=== PATIENT | male | born 1935 ===

== ENCOUNTER 2017-09-08 11:22 | Inpatient (IN) | payer OTHER, MEDICARE ==
--- NOTE | 2017-09-08 12:54 | CT ---
PROCEDURE: CT HEAD WITHOUT CONTRAST. HISTORY: r/o ICH COMPARISON: None available. TECHNIQUE: Axial computed tomography images were obtained through the head/brain without intravenous contrast. Radiation dose: Total exam DLP = 850.65 mGy-cm. This CT exam was performed using one or more of the following dose reduction techniques: Automated exposure control, adjustment of the mA and/or kV according to patient size, and/or use of iterative reconstruction technique. FINDINGS: HEMORRHAGE: No intracranial hemorrhage. BRAIN: Good corticomedullary differentiation is seen. Diffuse expansion of the ventriculosulcal and cisternal spaces is appreciated with white matter lucency compatible with diffuse cerebral atrophy and chronic microangiopathy. No suspicious extra-axial fluid collection is identified and the midline brain anatomy appears grossly nonfocal as imaged. There is no mass effect throughout. VENTRICLES: Unremarkable. No hydrocephalus. CALVARIUM: Unremarkable. PARANASAL SINUSES: Unremarkable as visualized. No significant inflammatory changes. MASTOID AIR CELLS: Unremarkable as visualized. No inflammatory changes. OTHER FINDINGS: None. IMPRESSION: Age related neuro degenerative changes are identified without acute intracranial findings as discussed above. Exam otherwise unremarkable. Follow up CT or MRI are available if clinically warranted.
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
[2017-09-08 14:19] LABS: BASO % 0.4 % (0.0-2.0); EOS # 0.4 K/uL (0.0-0.7); EOS % 5.8 % (0.0-4.0); HEMOGLOBIN 13.8 g/dL (12.0-18.0); LYMPH # 1.1 K/uL (1.0-4.3); LYMPH % 14.6 % (20.0-40.0); MEAN CELL VOLUME 98.5 fl (80.0-94.0); MEAN CORPUSCULAR HEMOGLOBIN 33.8 pg (27.0-31.0); MEAN CORPUSCULAR HGB CONC 34.4 g/dL (33.0-37.0); MEAN PLATELET VOLUME 8.2 fl (7.2-11.7); MONO # 0.4 K/uL (0.0-0.8); MONO % 4.9 % (0.0-10.0); NEUT # 5.6 K/uL (1.8-7.0); NEUT % 74.3 % (50.0-75.0); RBC 4.07 Mil/uL (4.40-5.90); RED CELL DISTRIBUTION WIDTH 14.6 % (11.5-14.5); WHITE BLOOD COUNT 7.5 K/uL (4.8-10.8)
[2017-09-08 14:31] LABS: ALB/GLOB RATIO 1.2 (1.0-2.1); ALBUMIN 3.9 g/dL (3.5-5.0); ALT/SGPT 44 U/L (21-72); AST/SGOT 40 U/L (17-59); BLOOD UREA NITROGEN 10 mg/dl (9-20); CALCIUM 9.2 mg/dL (8.4-10.2); GFR AFRICAN-AMERICAN > 60; GFR NON-AFRICAN AMERICAN 58
[2017-09-08 14:32] LABS: PROTHROMBIN TIME 11.4 Seconds (9.8-13.1)
[2017-09-08 14:33] LABS: PARTIAL THROMBOPLASTIN TIME 29.8 Seconds (25.6-37.1)
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
[2017-09-08 15:56] LABS: ALB/GLOB RATIO 1.1 (1.0-2.1); ALBUMIN 3.7 g/dL (3.5-5.0); ALT/SGPT 34 U/L (21-72); AST/SGOT 34 U/L (17-59); BLOOD UREA NITROGEN 11 mg/dl (9-20); CALCIUM 9.1 mg/dL (8.4-10.2); GFR AFRICAN-AMERICAN > 60; GFR NON-AFRICAN AMERICAN > 60
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
--- NOTE | 2017-09-08 16:47 | RAD ---
PROCEDURE: Left Knee Radiographs. HISTORY: Pain. COMPARISON: None. FINDINGS: BONES: Normal. No fracture. JOINTS: Normal. No osteoarthritis. JOINT EFFUSION: None. OTHER FINDINGS: None. IMPRESSION: No acute findings related to/accounting for the clinical presentation.
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
--- NOTE | 2017-09-08 17:03 | CT ---
PROCEDURE: HISTORY: L hip fracture COMPARISON: Left femur and left hip pelvic x-rays 09/08/2017 TECHNIQUE: Axial imaging through the left hip with sagittal coronal reformations were obtained. 3D surface algorithm also applied.This CT exam was performed using one or more of the following dose reduction techniques: Automated exposure control, adjustment of the mA and/or kV according to patient size, and/or use of iterative reconstruction technique. FINDINGS: Background left hip osteoarthrosis noted A left oblique complete fracture starting left superolateral and exiting left inferomedial to left femoral neck noted the inferomedial exit is just above the trochanteric line. No dislocation noted Atherosclerotic vascular calcifications present. . IMPRESSION: Left femoral neck fracture without significant displaced fracture fragments. No dislocation. Background left hip mild osteoarthrosis Atherosclerotic vascular calcifications present. .
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
[2017-09-08] MEDS: Sodium Chloride 0.9% 1,000 ML IV SCH (19:18)
[2017-09-08 21:18] LABS: URINE BACTERIA RARE (<OCC); URINE BILIRUBIN NEGATIVE (NEGATIVE); URINE BLOOD NEGATIVE (NEGATIVE); URINE CLARITY CLEAR (Clear); URINE COLOR YELLOW (YELLOW); URINE GLUCOSE (UA) 50 mg/dL (Normal); URINE LEUKOCYTE ESTERASE NEG Leu/uL (Negative); URINE PROTEIN NEGATIVE (NEGATIVE); URINE UROBILINOGEN 0.2-1.0 mg/dL (0.2-1.0)
[2017-09-08] MEDS: Insulin Lispro (humaLOG) 100 Units/ml Inj SC SCH (22:00)
[2017-09-09] MEDS: Sodium Chloride 0.9% 1,000 ML IV SCH ×4 (03:50→23:45)
[2017-09-09 06:30] LABS: BASO % 0.6 % (0.0-2.0); EOS # 0.8 K/uL (0.0-0.7); EOS % 14.6 % (0.0-4.0); HEMOGLOBIN 12.4 g/dL (12.0-18.0); LYMPH # 1.2 K/uL (1.0-4.3); LYMPH % 21.2 % (20.0-40.0); MEAN CELL VOLUME 99.7 fl (80.0-94.0); MEAN CORPUSCULAR HEMOGLOBIN 33.6 pg (27.0-31.0); MEAN CORPUSCULAR HGB CONC 33.7 g/dL (33.0-37.0); MEAN PLATELET VOLUME 8.5 fl (7.2-11.7); MONO # 0.4 K/uL (0.0-0.8); MONO % 7.2 % (0.0-10.0); NEUT # 3.1 K/uL (1.8-7.0); NEUT % 56.4 % (50.0-75.0); NRBC % 0.1 % (0.0-0.0); RBC 3.69 Mil/uL (4.40-5.90); RED CELL DISTRIBUTION WIDTH 14.7 % (11.5-14.5); WHITE BLOOD COUNT 5.5 K/uL (4.8-10.8)
[2017-09-09 06:50] LABS: LDL CHOLESTEROL 41 mg/dL (0-129)
[2017-09-09 06:59] LABS: BLOOD UREA NITROGEN 15 mg/dl (9-20); CALCIUM 8.6 mg/dL (8.4-10.2); GFR AFRICAN-AMERICAN > 60; GFR NON-AFRICAN AMERICAN 58; HDL CHOLESTEROL 42 MG/DL (30-70)
[2017-09-09] MEDS: Insulin Lispro (humaLOG) 100 Units/ml Inj SC SCH ×4 (07:52→21:30)
[2017-09-09] MEDS: Pantoprazole 40 mg EC Tab PO SCH (08:02)
[2017-09-09] MEDS: Enoxaparin 40 mg Syringe SC SCH (08:02)
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
--- NOTE | 2017-09-09 10:33 | CARD ---
APPROVED REPORT EKG Measurement Heart [id number] [place] 134P [id number] <Conclusion> Probable coronary sinus rhythm Low voltage QRS Borderline ECG
--- NOTE | 2017-09-09 12:01 | CP.PCM.PN ---
Subjective - Date & Time of Evaluation Date of Evaluation: 09/09/17 Time of Evaluation: 11:59 - Subjective Subjective: Patient complaining of pain in hip. Denies CP/SOB/dizziness. Objective - Vital Signs/Intake and Output Vital Signs (last 24 hours): Temp Pulse Resp BP Pulse Ox 97.3 F L 66 20 137/82 99 09/09/17 08:21 09/09/17 08:21 09/09/17 08:21 09/09/17 08:21 09/09/17 08:21 - Medications Medications: Current Medications Acetaminophen (Tylenol 325mg Tab) 650 mg PO Q6 PRN PRN Reason: Pain, Mild (1-3) Acetaminophen (Tylenol 325mg Tab) 650 mg PO Q6 PRN PRN Reason: Fever >100.4 F Docusate Sodium (Colace) 100 mg PO BID [facility] Last Admin: 09/09/17 08:02 Dose: 100 mg Enoxaparin Sodium (Lovenox) 40 mg SC DAILY [facility] PRN Reason: Protocol Last Admin: 09/09/17 08:02 Dose: 40 mg Sodium Chloride (Sodium Chloride 0.9%) 1,000 mls @ 100 mls/hr IV .Q10H [facility] Last Admin: 09/09/17 06:21 Dose: 100 mls/hr Insulin Human Lispro (Humalog) 0 units SC ACHS [facility] PRN Reason: Protocol Last Admin: 09/09/17 07:52 Dose: Not Given Ketorolac Tromethamine (Toradol) 30 mg IVP Q6 PRN PRN Reason: Pain, moderate (4-7) Last Admin: 09/09/17 02:04 Dose: 30 mg Morphine Sulfate (Morphine) 2 mg IVP Q6 PRN PRN Reason: Pain, severe (8-10) Last Admin: 09/09/17 02:39 Dose: 2 mg Ondansetron HCl (Zofran Inj) 4 mg IVP Q6 PRN PRN Reason: Nausea/Vomiting Pantoprazole Sodium (Protonix Ec Tab) 40 mg PO DAILY [facility] Last Admin: 09/09/17 08:02 Dose: 40 mg - Labs Labs: 09/09/17 06:00 09/09/17 06:00 PT 11.4 Seconds (9.8-13.1) 09/08/17 14:10 INR 1.0 (0.9-1.2) 09/08/17 14:10 APTT 29.8 Seconds (25.6-37.1) 09/08/17 14:10 - Extremities Exam Additional comments: Patient refusing SCD on left, adjusted and reinforced. +ROM ankle/toes, sensation intact +DP/PT pulses Assessment and Plan (1) Fracture of femoral neck, left Assessment & Plan: For OR 09/12 pending cardiac clearance hold lovenox after tuesday dose, SCDs T&C labs reviewed d/w Dr. Walekr, agrees with above Status: Acute
--- NOTE | 2017-09-09 20:49 | CARD ---
APPROVED REPORT EXAM: Two-dimensional and M-mode echocardiogram with Doppler and color Doppler. Other Information Quality : FairRhythm : NSR Technically limited study due to Poor Window,broken HIP INDICATION Pre-Op 2D DIMENSIONS IVSd0.88 (0.7-1.1cm)LVDd5.20 (3.9-5.9cm) PWd0.92 (0.7-1.1cm)IVSs1.17 (0.8-1.2cm) LVDs3.01 (2.5-4.0cm)FS (%) 42.1 % PWs0.85 (0.8-1.2cm) Mitral Valve MV E Pqmbwils38.0cm/sMV DECEL [id number] A Kjnejjoj07.4cm/s MV [id number]/A ratio0.7MVA (PHT)2.47cm2 TDI E/Lateral E'0.0E/Medial E'0.0 LEFT VENTRICLE The left ventricle is normal in size. There is normal left ventricular wall thickness. The left ventricular function is normal. The left ventricular ejection fraction is - 70%. There is normal LV segmental wall motion. Transmitral Doppler flow pattern is Grade I-abnormal relaxation pattern. No left ventricle thrombus noted on this study. There is no ventricular septal defect visualized. There is no left ventricular aneurysm. There is no mass noted in the left ventricle. RIGHT VENTRICLE The right ventricle is normal size. There is normal right ventricular wall thickness. The right ventricular systolic function is normal. ATRIA The left atrium size is normal. There is no thrombus suspected in the left atrium. The right atrium size is normal. The interatrial septum is intact with no evidence for an atrial septal defect. AORTIC VALVE The aortic valve is normal in structure. No aortic regurgitation is present. There is no aortic valvular stenosis. MITRAL VALVE The mitral valve leaflets are mildly thickened. There is no evidence of mitral valve prolapse. There is no mitral valve stenosis. There is no mitral valve regurgitation noted. TRICUSPID VALVE The tricuspid valve is normal in structure. There is no tricuspid valve regurgitation noted. There is no tricuspid valve prolapse or vegetation. There is no tricuspid valve stenosis. PULMONIC VALVE The pulmonic valve is not well visualized. Doppler studies of the PV were not performed. GREAT VESSELS The aortic root is normal in size. The IVC is normal in size and collapses >50% with inspiration. The IVC is normal in size and collapses >50% with inspiration. PERICARDIAL EFFUSION The pericardium appears normal. There is no pleural effusion. <Conclusion> The study is of suboptimal quality. The left ventricle is normal in size and wall thickness. The left ventricular function is normal. The left ventricular ejection fraction is - 70%. The left atrium, right ventricle and right atrium are normal in size The mitral valve is mildly thickened but not stenotic. The aortic and tricuspid valves are normal.
[2017-09-10 06:41] LABS: HEMOGLOBIN 12.6 g/dL (12.0-18.0); MEAN CELL VOLUME 98.8 fl (80.0-94.0); MEAN CORPUSCULAR HEMOGLOBIN 33.6 pg (27.0-31.0); RBC 3.74 Mil/uL (4.40-5.90); RED CELL DISTRIBUTION WIDTH 14.6 % (11.5-14.5); WHITE BLOOD COUNT 5.8 K/uL (4.8-10.8)
[2017-09-10 07:00] LABS: BLOOD UREA NITROGEN 12 mg/dl (9-20); CALCIUM 8.7 mg/dL (8.4-10.2); GFR AFRICAN-AMERICAN > 60; GFR NON-AFRICAN AMERICAN > 60; HDL CHOLESTEROL 45 MG/DL (30-70)
[2017-09-10 07:11] LABS: LDL CHOLESTEROL 45 mg/dL (0-129)
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
[2017-09-10] MEDS: Insulin Lispro (humaLOG) 100 Units/ml Inj SC SCH ×4 (08:02→22:00)
[2017-09-10] MEDS: Enoxaparin 40 mg Syringe SC SCH (08:26)
[2017-09-10] MEDS: Pantoprazole 40 mg EC Tab PO SCH (08:27)
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
[2017-09-10] MEDS: Sodium Chloride 0.9% 1,000 ML IV SCH (09:14)
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
[2017-09-11] MEDS ORDERED: Ergocalciferol 50,000 Intl Units Cap PO SCH (07:45)
[2017-09-11] MEDS: Insulin Lispro (humaLOG) 100 Units/ml Inj SC SCH ×4 (07:52→21:25)
[2017-09-11] MEDS: Pantoprazole 40 mg EC Tab PO SCH (08:51)
[2017-09-12 06:20] LABS: MEAN CELL VOLUME 99.2 fl (80.0-94.0); MEAN CORPUSCULAR HEMOGLOBIN 33.9 pg (27.0-31.0); MEAN CORPUSCULAR HGB CONC 34.1 g/dL (33.0-37.0); RBC 3.83 Mil/uL (4.40-5.90); RED CELL DISTRIBUTION WIDTH 14.1 % (11.5-14.5); WHITE BLOOD COUNT 4.6 K/uL (4.8-10.8)
[2017-09-12 06:30] LABS: BLOOD UREA NITROGEN 14 mg/dl (9-20); CALCIUM 8.9 mg/dL (8.4-10.2); GFR AFRICAN-AMERICAN > 60; GFR NON-AFRICAN AMERICAN > 60; INR 1.1 (0.9-1.2); PROTHROMBIN TIME 11.7 Seconds (9.8-13.1)
[2017-09-12] MEDS: Insulin Lispro (humaLOG) 100 Units/ml Inj SC SCH ×4 (07:00→21:38)
[2017-09-12] MEDS ORDERED: Absorbable Gelatin Sponge Size 100 ONE (07:17)
[2017-09-12] MEDS ORDERED: Thrombin Topical 5,000 Int Units Spray Kit ONE (07:17)
[2017-09-12] MEDS ORDERED: Bupivacaine 0.5% Inj(30mL) ONE (07:17)
[2017-09-12] MEDS ORDERED: Morphine 1 mg/ml preservative-free Inj(Duramorph) ONE (07:41)
[2017-09-12] MEDS ORDERED: ePHEDrine 50 mg/ml Inj ONE (07:41)
[2017-09-12] MEDS ORDERED: Etomidate 20 mg/10ml Inj IV ONE (07:42)
[2017-09-12] MEDS ORDERED: Phenylephrine 10 mg/ml Inj ONE (07:43)
[2017-09-12] MEDS ORDERED: Propofol 10 mg/ml Inj (20 ML) ONE (07:43)
[2017-09-12] MEDS ORDERED: Lactated Ringer's 1,000 ML IV ONE ×2 (07:45→09:30)
[2017-09-12] MEDS ORDERED: Succinylcholine 200 mg/10 ml Inj IV ONE (07:58)
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
[2017-09-12] MEDS ORDERED: Rocuronium 10 mg/ml (5 ml) ONE (08:41)
[2017-09-12] MEDS ORDERED: Vecuronium 10 mg Inj ONE (08:42)
[2017-09-12] MEDS ORDERED: Tranexamic Acid 1,000 MG in Sodium Chloride 0.9% 100 ML IVPB ONE (09:03)
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
[2017-09-12] MEDS: Pantoprazole 40 mg EC Tab PO SCH (09:35)
[2017-09-12] MEDS ORDERED: Sodium Chloride 0.9% 3,000 ML IV ONE (10:07)
[2017-09-12] MEDS ORDERED: Bacitracin Ointment 30 GM TUBE ONE (11:23)
[2017-09-12] MEDS ORDERED: Oxycodone/Acetaminophen 5/325 mg Tab PO PRN (11:50)
--- NOTE | 2017-09-12 14:00 | RAD ---
PROCEDURE: Left Hip X-ray Radiographs. HISTORY: s/p THR pt in PACU COMPARISON: 09/08/2017 FINDINGS: BONES: The pelvic ring is intact. There is no acute fracture or bone destruction. Status post total left hip arthroplasty. JOINTS: The right hip joint space is preserved. The sacroiliac joints are normal. SOFT TISSUES: There is left periarticular soft tissue swelling and extensive soft tissue emphysema in keeping with recent surgery. Lateral skin tanya are identified OTHER FINDINGS: None. IMPRESSION: Status post total left hip arthroplasty with expected postsurgical changes in the periarticular soft tissues. No acute complications.
--- NOTE | 2017-09-12 15:19 | PCM.SURG1 ---
Surgeon's Initial Post Op Note - Surgeon's Notes Surgeon: Ron Walker MD Abrasive Grader: Nilton Bond PA-C, Rachel CANTU Type of Anesthesia: General Endo Anesthesia Administered By: Aaron TRAVIS Pre-Operative Diagnosis: Left displaced femoral neck fracture Operative Findings: 1) Left hip displaced femoral neck fracture. 2) Pre- existing left hip osteoarthritis Post-Operative Diagnosis: as above Operation Performed: 1) Left total hip arthroplasty, anterior approach. 2) Left femoral neck osteotomy. 3) Iliopsoas release. 4) Allograft bone grafting Specimen/Specimens Removed: Left femoral head Estimated Blood Loss: EBL {In ML}: 80 Blood Products Given: N/A Drains Used: No Drains Date of Surgery/Procedure: 09/12/17 Time of Surgery/Procedure: 07:45 (incision time: 09:10)
--- NOTE | 2017-09-12 15:50 | RAD ---
PROCEDURE: Fluoroscopy over 1 hour HISTORY: LEFT HIP COMPARISON: None TECHNIQUE: Standard protocol for this study/examination. FINDINGS: Total fluoroscopic time (continuous mode) utilized during the procedure 17.0 (seconds). IMPRESSION: Submitted images from the current procedure: 5.0
[2017-09-12] MEDS: ceFAZolin 2 GM in Sodium Chloride 0.9% 100 ML IVPB SCH ×2 (16:38→16:42)
[2017-09-12] MEDS: Oxycodone/Acetaminophen 5/325 mg Tab PO PRN (23:27)
[2017-09-13] MEDS ORDERED: ceFAZolin 2 GM in Sodium Chloride 0.9% 100 ML IVPB SCH (01:00)
[2017-09-13] MEDS: Oxycodone/Acetaminophen 5/325 mg Tab PO PRN ×2 (03:39→09:08)
[2017-09-13 03:50] VITALS: RESP 20
[2017-09-13] MEDS: Lactated Ringer's 1,000 ML IV SCH ×2 (04:01→04:35)
[2017-09-13] MEDS: Sodium Chloride 0.9% 1,000 ML IV SCH ×2 (04:36→09:22)
[2017-09-13 06:04] LABS: HEMOGLOBIN 10.2 g/dL (12.0-18.0); MEAN CORPUSCULAR HGB CONC 34.1 g/dL (33.0-37.0); RBC 2.99 Mil/uL (4.40-5.90); RED CELL DISTRIBUTION WIDTH 14.2 % (11.5-14.5); WHITE BLOOD COUNT 5.8 K/uL (4.8-10.8)
[2017-09-13 06:26] LABS: BLOOD UREA NITROGEN 19 mg/dl (9-20); GFR AFRICAN-AMERICAN > 60; GFR NON-AFRICAN AMERICAN 58
--- NOTE | 2017-09-13 08:35 | CP.PCM.PN ---
Subjective - Date & Time of Evaluation Date of Evaluation: 09/13/17 Time of Evaluation: 07:30 - Subjective Subjective: Patient seen and examined at bedside comfortable. Pain well controlled. No acute events overnight. Objective - Vital Signs/Intake and Output Vital Signs (last 24 hours): Temp Pulse Resp BP Pulse Ox 97.4 F L 92 H 20 114/67 96 09/13/17 07:39 09/13/17 07:39 09/13/17 07:39 09/13/17 07:39 09/13/17 07:39 - Medications Medications: Current Medications Acetaminophen (Tylenol 325mg Tab) 650 mg PO Q6 PRN PRN Reason: Pain, Mild (1-3) Acetaminophen (Tylenol 325mg Tab) 650 mg PO Q6 PRN PRN Reason: Fever >100.4 F Docusate Sodium (Colace) 100 mg PO BID [facility] Last Admin: 09/12/17 09:41 Dose: Not Given Enoxaparin Sodium (Lovenox) 40 mg SC Q24H [facility] PRN Reason: Protocol Ergocalciferol (Drisdol 50,000 Intl Units Cap) 1 cap PO Q7D [facility] Last Admin: 09/11/17 13:00 Dose: 1 cap Ferrous Sulfate (Feosol) 325 mg PO BID [facility] Sodium Chloride (Sodium Chloride 0.9%) 1,000 mls @ 100 mls/hr IV .Q10H [facility] Last Admin: 09/13/17 04:36 Dose: Not Given Insulin Human Lispro (Humalog) 0 units SC ACHS [facility] PRN Reason: Protocol Last Admin: 09/12/17 21:38 Dose: Not Given Morphine Sulfate (Morphine) 2 mg IVP Q4 PRN PRN Reason: Pain, severe (8-10) Last Admin: 09/13/17 05:00 Dose: 2 mg Ondansetron HCl (Zofran Inj) 4 mg IVP Q6 PRN PRN Reason: Nausea/Vomiting Oxycodone/Acetaminophen (Percocet 5/325 Mg Tab) 1 tab PO Q4 PRN PRN Reason: Pain, moderate (4-7) Stop: 09/15/17 11:52 Last Admin: 09/13/17 03:39 Dose: 1 tab Pantoprazole Sodium (Protonix Ec Tab) 40 mg PO DAILY [facility] Last Admin: 09/11/17 08:51 Dose: 40 mg - Labs Labs: 09/13/17 05:50 09/13/17 05:50 PT 11.7 Seconds (9.8-13.1) 09/12/17 06:00 INR 1.1 (0.9-1.2) 09/12/17 06:00 APTT 29.8 Seconds (25.6-37.1) 09/08/17 14:10 - Extremities Exam Additional comments: R hip: Dressings CDI, mild tenderness 2nd to surgery, mild swelling sensation intact SP/DP/TN motor intact EHL/FHL/TA/G pedal pulses intact comp soft NT Assessment and Plan (1) Femoral neck fracture Assessment & Plan: POD #1 R CAMILLA anterior approach doing well -pain control -PT/OT WBAT -DVT ppx -complete abx course -d/c planning -above d/w Dr. Walker in agreement Status: Acute
[2017-09-13] MEDS: Insulin Lispro (humaLOG) 100 Units/ml Inj SC SCH ×4 (09:04→22:13)
[2017-09-13] MEDS: Pantoprazole 40 mg EC Tab PO SCH (09:05)
--- NOTE | 2017-09-13 09:06 | CP.PCM.PN ---
Subjective - Date & Time of Evaluation Date of Evaluation: 09/13/17 Time of Evaluation: 09:00 - Subjective Subjective: NO CHEST PAIN OR SOB Objective - Vital Signs/Intake and Output Vital Signs (last 24 hours): Temp Pulse Resp BP Pulse Ox 97.4 F L 92 H 20 114/67 96 09/13/17 07:39 09/13/17 07:39 09/13/17 07:39 09/13/17 07:39 09/13/17 07:39 - Medications Medications: Current Medications Acetaminophen (Tylenol 325mg Tab) 650 mg PO Q6 PRN PRN Reason: Pain, Mild (1-3) Acetaminophen (Tylenol 325mg Tab) 650 mg PO Q6 PRN PRN Reason: Fever >100.4 F Docusate Sodium (Colace) 100 mg PO BID [facility] Last Admin: 09/12/17 09:41 Dose: Not Given Enoxaparin Sodium (Lovenox) 40 mg SC Q24H [facility] PRN Reason: Protocol Ergocalciferol (Drisdol 50,000 Intl Units Cap) 1 cap PO Q7D [facility] Last Admin: 09/11/17 13:00 Dose: 1 cap Ferrous Sulfate (Feosol) 325 mg PO BID [facility] Sodium Chloride (Sodium Chloride 0.9%) 1,000 mls @ 100 mls/hr IV .Q10H [facility] Last Admin: 09/13/17 04:36 Dose: Not Given Insulin Human Lispro (Humalog) 0 units SC ACHS [facility] PRN Reason: Protocol Last Admin: 09/12/17 21:38 Dose: Not Given Morphine Sulfate (Morphine) 2 mg IVP Q4 PRN PRN Reason: Pain, severe (8-10) Last Admin: 09/13/17 05:00 Dose: 2 mg Ondansetron HCl (Zofran Inj) 4 mg IVP Q6 PRN PRN Reason: Nausea/Vomiting Oxycodone/Acetaminophen (Percocet 5/325 Mg Tab) 1 tab PO Q4 PRN PRN Reason: Pain, moderate (4-7) Stop: 09/15/17 11:52 Last Admin: 09/13/17 03:39 Dose: 1 tab Pantoprazole Sodium (Protonix Ec Tab) 40 mg PO DAILY [facility] Last Admin: 09/11/17 08:51 Dose: 40 mg - Labs Labs: 09/13/17 05:50 09/13/17 05:50 PT 11.7 Seconds (9.8-13.1) 09/12/17 06:00 INR 1.1 (0.9-1.2) 09/12/17 06:00 APTT 29.8 Seconds (25.6-37.1) 09/08/17 14:10 - Respiratory Exam Respiratory Exam: Clear to Ausculation Bilateral - Cardiovascular Exam Cardiovascular Exam: REGULAR RHYTHM, +S1, +S2 - Additional Findings Additional findings: OR NOTES REVIEWED WITH LEFT HIP ARTHROPLASTY AND LEFT FEMORAL NECK OSTEOTOMY Assessment and Plan - Assessment and Plan (Free Text) Assessment: SURGICAL REPAIR OF LEFT HIP FRACTURE Plan: CONTINUE LOVENOX AND PAIN MEDICATIONS FOR REHAB
[2017-09-13] MEDS: Enoxaparin 40 mg Syringe SC SCH ×2 (09:20→09:22)
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
[2017-09-13] MEDS ORDERED: Sodium Chloride 0.9% 500 ML IV ONE (16:19)
[2017-09-14] MEDS: Sodium Chloride 0.9% 1,000 ML IV SCH ×3 (01:34→16:21)
[2017-09-14 06:28] LABS: HEMOGLOBIN 8.9 g/dL (12.0-18.0); MEAN CELL VOLUME 98.7 fl (80.0-94.0); MEAN CORPUSCULAR HEMOGLOBIN 34.3 pg (27.0-31.0); MEAN CORPUSCULAR HGB CONC 34.7 g/dL (33.0-37.0); RBC 2.61 Mil/uL (4.40-5.90); RED CELL DISTRIBUTION WIDTH 13.8 % (11.5-14.5); WHITE BLOOD COUNT 5.5 K/uL (4.8-10.8)
[2017-09-14 06:47] LABS: BLOOD UREA NITROGEN 19 mg/dl (9-20); CALCIUM 7.7 mg/dL (8.4-10.2); GFR AFRICAN-AMERICAN > 60; GFR NON-AFRICAN AMERICAN > 60
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
--- NOTE | 2017-09-14 08:07 | CP.PCM.PN ---
Subjective - Date & Time of Evaluation Date of Evaluation: 09/14/17 Time of Evaluation: 08:00 - Subjective Subjective: Patient states pain in hip is controlled, and he is feeling better. Denies CP/ SOB/dizziness. Objective - Vital Signs/Intake and Output Vital Signs (last 24 hours): Temp Pulse Resp BP Pulse Ox 97.5 F L 81 20 126/67 98 09/14/17 08:05 09/14/17 08:05 09/14/17 08:05 09/14/17 08:05 09/14/17 08:05 - Medications Medications: Current Medications Acetaminophen (Tylenol 325mg Tab) 650 mg PO Q6 PRN PRN Reason: Pain, Mild (1-3) Last Admin: 09/14/17 02:46 Dose: 650 mg Acetaminophen (Tylenol 325mg Tab) 650 mg PO Q6 PRN PRN Reason: Fever >100.4 F Docusate Sodium (Colace) 100 mg PO BID [facility] Last Admin: 09/13/17 16:44 Dose: 100 mg Enoxaparin Sodium (Lovenox) 40 mg SC Q24H [facility] PRN Reason: Protocol Last Admin: 09/13/17 09:22 Dose: 40 mg Ergocalciferol (Drisdol 50,000 Intl Units Cap) 1 cap PO Q7D [facility] Last Admin: 09/11/17 13:00 Dose: 1 cap Ferrous Sulfate (Feosol) 325 mg PO BID [facility] Last Admin: 09/13/17 16:44 Dose: 325 mg Sodium Chloride (Sodium Chloride 0.9%) 1,000 mls @ 125 mls/hr IV .Q8H [facility] Last Admin: 09/14/17 05:48 Dose: Not Given Insulin Human Lispro (Humalog) 0 units SC ACHS [facility] PRN Reason: Protocol Last Admin: 09/13/17 22:13 Dose: Not Given Ondansetron HCl (Zofran Inj) 4 mg IVP Q6 PRN PRN Reason: Nausea/Vomiting Pantoprazole Sodium (Protonix Ec Tab) 40 mg PO DAILY [facility] Last Admin: 09/13/17 09:05 Dose: 40 mg - Labs Labs: 09/14/17 05:30 09/14/17 05:30 PT 11.7 Seconds (9.8-13.1) 09/12/17 06:00 INR 1.1 (0.9-1.2) 09/12/17 06:00 APTT 29.8 Seconds (25.6-37.1) 09/08/17 14:10 - Extremities Exam Additional comments: +ROM ankle/toes, sensation intact calves soft NT neg homans dressing changed. Minimal sang drainage, minimal swelling, no erythema, incision intact Assessment and Plan (1) Fracture of femoral neck, left Assessment & Plan: POD#2 s/p left THR -PT/OT drop in h/h expected, hemodynamically stable, monitor cont VTE proph d/c planning encourage OOB d/w DR. Walker, agrees with above Status: Acute (2) Acute blood loss anemia Assessment & Plan: stable, monitor Status: Acute (3) Vitamin D deficiency Assessment & Plan: supplemented Status: Chronic
[2017-09-14] MEDS: Insulin Lispro (humaLOG) 100 Units/ml Inj SC SCH ×4 (08:27→23:04)
[2017-09-14] MEDS: Pantoprazole 40 mg EC Tab PO SCH (08:30)
[2017-09-14] MEDS: Enoxaparin 40 mg Syringe SC SCH (08:36)
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
[2017-09-15 06:11] LABS: HEMOGLOBIN 10.3 g/dL (12.0-18.0); MEAN CELL VOLUME 96.6 fl (80.0-94.0); MEAN CORPUSCULAR HEMOGLOBIN 32.8 pg (27.0-31.0); MEAN CORPUSCULAR HGB CONC 33.9 g/dL (33.0-37.0); RBC 3.14 Mil/uL (4.40-5.90); RED CELL DISTRIBUTION WIDTH 15.9 % (11.5-14.5); WHITE BLOOD COUNT 5.2 K/uL (4.8-10.8)
[2017-09-15 06:30] LABS: BLOOD UREA NITROGEN 15 mg/dl (9-20); CALCIUM 8.3 mg/dL (8.4-10.2); GFR AFRICAN-AMERICAN > 60; GFR NON-AFRICAN AMERICAN > 60
[2017-09-15] MEDS: Insulin Lispro (humaLOG) 100 Units/ml Inj SC SCH ×3 (07:32→16:44)
--- NOTE | 2017-09-15 08:43 | CP.PCM.PN ---
Subjective - Date & Time of Evaluation Date of Evaluation: 09/15/17 Time of Evaluation: 07:45 - Subjective Subjective: Patient seen and examined at bedside comfortable. Pain is improved since yesterday. No new complaints. Objective - Vital Signs/Intake and Output Vital Signs (last 24 hours): Temp Pulse Resp BP Pulse Ox 97.4 F L 79 20 147/74 98 09/15/17 08:22 09/15/17 08:22 09/15/17 08:22 09/15/17 08:22 09/15/17 08:22 - Medications Medications: Current Medications Acetaminophen (Tylenol 325mg Tab) 650 mg PO Q6 PRN PRN Reason: Pain, Mild (1-3) Last Admin: 09/14/17 02:46 Dose: 650 mg Acetaminophen (Tylenol 325mg Tab) 650 mg PO Q6 PRN PRN Reason: Fever >100.4 F Docusate Sodium (Colace) 100 mg PO BID [facility] Last Admin: 09/14/17 16:20 Dose: 100 mg Enoxaparin Sodium (Lovenox) 40 mg SC Q24H [facility] PRN Reason: Protocol Last Admin: 09/14/17 08:36 Dose: 40 mg Ergocalciferol (Drisdol 50,000 Intl Units Cap) 1 cap PO Q7D [facility] Last Admin: 09/11/17 13:00 Dose: 1 cap Ferrous Sulfate (Feosol) 325 mg PO BID [facility] Last Admin: 09/14/17 16:20 Dose: 325 mg Sodium Chloride (Sodium Chloride 0.9%) 1,000 mls @ 125 mls/hr IV .Q8H [facility] Last Admin: 09/14/17 16:21 Dose: Not Given Insulin Human Lispro (Humalog) 0 units SC ACHS [facility] PRN Reason: Protocol Last Admin: 09/15/17 07:32 Dose: Not Given Ondansetron HCl (Zofran Inj) 4 mg IVP Q6 PRN PRN Reason: Nausea/Vomiting Pantoprazole Sodium (Protonix Ec Tab) 40 mg PO DAILY [facility] Last Admin: 09/14/17 08:30 Dose: 40 mg - Labs Labs: 09/15/17 05:50 09/15/17 05:50 PT 11.7 Seconds (9.8-13.1) 09/12/17 06:00 INR 1.1 (0.9-1.2) 09/12/17 06:00 APTT 29.8 Seconds (25.6-37.1) 09/08/17 14:10 - Extremities Exam Additional comments: L Hip: Dressings CDI, mild swelling, mod tenderness sensation intact SP/DP/TN motor EHL/FHL/TA/G pedal pulses intact comp soft/NT Assessment and Plan (1) Femoral neck fracture Assessment & Plan: POD#2 s/p left CAMILLA anterior approach -PT/OT WBAT -DVT ppx -pain control -orthopedically stable for discharge -above d/w Dr. Walker in agreement Status: Acute
[2017-09-15] MEDS: Enoxaparin 40 mg Syringe SC SCH (09:12)
[2017-09-15] MEDS: Pantoprazole 40 mg EC Tab PO SCH (09:12)
--- NOTE | 2017-09-15 10:30 | CP.PCM.PN ---
Subjective - Date & Time of Evaluation Date of Evaluation: 09/15/17 Time of Evaluation: 09:30 - Subjective Subjective: FEELS BETTER AFTER BLOOD TRANSFUSION NO OTHER COMPLAINTS EXCEPT FOR PAIN AT SURGICAL AREA Objective - Vital Signs/Intake and Output Vital Signs (last 24 hours): Temp Pulse Resp BP Pulse Ox 97.4 F L 79 20 147/74 98 09/15/17 08:22 09/15/17 08:22 09/15/17 08:22 09/15/17 08:22 09/15/17 08:22 - Medications Medications: Current Medications Acetaminophen (Tylenol 325mg Tab) 650 mg PO Q6 PRN PRN Reason: Pain, Mild (1-3) Last Admin: 09/15/17 09:21 Dose: 650 mg Acetaminophen (Tylenol 325mg Tab) 650 mg PO Q6 PRN PRN Reason: Fever >100.4 F Docusate Sodium (Colace) 100 mg PO BID [facility] [place] Last Admin: 09/15/17 09:12 Dose: 100 mg Enoxaparin Sodium (Lovenox) 40 mg SC Q24H [facility] [place] PRN Reason: Protocol Last Admin: 09/15/17 09:12 Dose: 40 mg Ergocalciferol (Drisdol 50,000 Intl Units Cap) 1 cap PO Q7D [facility] [place] Last Admin: 09/11/17 13:00 Dose: 1 cap Ferrous Sulfate (Feosol) 325 mg PO BID [facility] [place] Last Admin: 09/15/17 09:12 Dose: 325 mg Sodium Chloride (Sodium Chloride 0.9%) 1,000 mls @ 125 mls/hr IV .Q8H [facility] [place] Last Admin: 09/14/17 16:21 Dose: Not Given Insulin Human Lispro (Humalog) 0 units SC ACHS [facility] [place] PRN Reason: Protocol Last Admin: 09/15/17 07:32 Dose: Not Given Ondansetron HCl (Zofran Inj) 4 mg IVP Q6 PRN PRN Reason: Nausea/Vomiting Pantoprazole Sodium (Protonix Ec Tab) 40 mg PO DAILY [facility] [place] Last Admin: 09/15/17 09:12 Dose: 40 mg - Labs Labs: 09/15/17 05:50 09/15/17 05:50 PT 11.7 Seconds (9.8-13.1) 09/12/17 06:00 INR 1.1 (0.9-1.2) 09/12/17 06:00 APTT 29.8 Seconds (25.6-37.1) 09/08/17 14:10 - Respiratory Exam Respiratory Exam: Clear to Ausculation Bilateral - Cardiovascular Exam Cardiovascular Exam: REGULAR RHYTHM, +S1, +S2 - Additional Findings Additional findings: H/H 03/14 TODAY BP IS GOOD TODAY Assessment and Plan - Assessment and Plan (Free Text) Assessment: KEFT HIP FRACTURE WITH SURGICAL REPAIR S/P ORTHOSTATIC FROM POST-OP ANEMIA AND LOW FLUID STATUS-NOW RESOLVED Plan: FOR REHAB
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
[2017-09-15 16:53] VITALS: BP 107/55; PULSE 72; TEMP 97.2; O2SAT 97
== END 2017-09-15 17:25 | DRG 470 ==
LOC: H.ER 11:22 → H.ERHOLD 15:08 → H.MEDSURG1 17:22
PROVIDERS: ADMIT Hospitalist; ATTEND Hospitalist
PROC: 0SR Lower Joints, Replacement (ICD-10-PCS; principal; 2017-09-12 07:45)
PROC: 30233N1 Transfusion of Nonautologous Red Blood Cells into Peripheral Vein, Percutaneous Approach (ICD-10-PCS; 2017-09-14)
DX: S72.012A Unspecified intracapsular fracture of left femur, initial encounter for closed fracture (principal); D62 Acute posthemorrhagic anemia; I95.1 Orthostatic hypotension; E11.65 Type 2 diabetes mellitus with hyperglycemia; M47.812 Spondylosis without myelopathy or radiculopathy, cervical region; S09.90XA Unspecified injury of head, initial encounter; V89.0XXA Person injured in unspecified motor-vehicle accident, nontraffic, initial encounter; I10 Essential (primary) hypertension; F03.90 Unspecified dementia, unspecified severity, without behavioral disturbance, psychotic disturbance, mood disturbance, and anxiety; E78.5 Hyperlipidemia, unspecified; E55.9 Vitamin D deficiency, unspecified; F17.210 Nicotine dependence, cigarettes, uncomplicated; Z91.14 Patient's other noncompliance with medication regimen; Z79.84 Long term (current) use of oral hypoglycemic drugs; Z89.411 Acquired absence of right great toe; Y92.410 Unspecified street and highway as the place of occurrence of the external cause